=== PATIENT | female | born 1955 | race Caucasian/White ===

== ENCOUNTER 2018-03-07 16:08 | Emergency (ER) | payer BC ==
[2018-03-07 16:19] VITALS: BP 147/87
--- NOTE | 2018-03-07 17:09 | RAD ---
INDICATION: Nose and RIGHT supraorbital pain post fall 4 days ago. Bilateral black eyes. COMPARISON: March 07, 2016 CT paranasal sinuses. TECHNIQUE: Multidetector CT base of the skull through mandible without contrast. Multiplanar reformation. REPORT: Mild RIGHT greater than LEFT preseptal orbital edema. Negative for post septal orbital edema. No loculated soft tissue plane hematoma evident. Negative for subcutaneous emphysema. Transverse lucency at the tip of the RIGHT nasal bone consistent with an age indeterminant nondisplaced fracture. Overlying soft tissue swelling. The orbital and maxillary sinus margins, zygomatic arches, lamina papyracea, base of the maxilla, and pterygoid plates are intact. The mandible is intact. Normal temporal mandibular joint alignment. Senile morphology mandible. Negative for paranasal sinus fluid levels. Clear visualized mastoid air spaces. IMPRESSION: 1. Transverse lucency at the tip of the RIGHT nasal bone consistent with an age indeterminant nondisplaced fracture. Given that the fracture is new compared with the 2016 exam it may be acute. 2. Mild RIGHT greater than LEFT preseptal orbital edema and edema over the bridge of the nose. Negative for post septal orbital edema. No loculated soft tissue plane hematoma evident. Negative for subcutaneous emphysema.
--- NOTE | 2018-03-07 20:56 | UC ---
Bernard Villar Rebecca, scribed for Roman Smith MD on 03/07/18 at 1634 . Eye Complaint HPI - HPI Summary HPI Summary: Pt is a 62 y/o F who presents to [facility] c/o bilateral blurred vision s/p trauma. On Sunday (4 days ago), the pt tripped and fell, hitting her face on a wooden counter top. Negative LOC. Additionally notes mild pain, ranked 2/10 and characterized as an ache, with the primary complaint being the blurred vision. Denies PARRA. - History of Current Complaint Chief Complaint: [facility] Stated Complaint: FACIAL INJURY Time Seen by Provider: 03/07/18 16:24 Hx Obtained From: Patient Onset/Duration: Still Present Severity Currently: Mild Pain Intensity: 2 Pain Scale Used: 0-10 Numeric Character: Dull Aggravating Factor(s): Nothing Alleviating Factor(s): Nothing Associated Signs And Symptoms: Positive: Vision Impairment Bilateral - Blurred Related History: Trauma - Allergies/Home Medications Allergies/Adverse Reactions: Allergies Allergy/AdvReac Type Severity Reaction Status Date / Time celecoxib Allergy Intermediate Rash Verified 03/07/18 16:27 PMH/Surg Hx/FS Hx/Imm Hx - Additional Past Medical History Additional PMH: PMHx: HTN, anxiety NEGATIVE PMHx: COPD, CAD, Thyroid disease - Surgical History Surgical History: Yes Surgery Procedure, Year, and Place: uterine surgery for benign cyst - Family History Known Family History: Negative: Cardiac Disease, Hypertension, Diabetes - Social History Alcohol Use: None Substance Use Type: None Smoking Status (MU): Former Smoker Type: Cigarettes Amount Used/How Often: over 18 years ago Review of Systems Constitutional: Negative Skin: Negative Eyes: Blurred Vision, Other - Eye pain ENT: Negative Respiratory: Negative Cardiovascular: Negative Gastrointestinal: Negative Genitourinary: Negative Motor: Negative Neurovascular: Negative Musculoskeletal: Negative Neurological: Negative Psychological: Negative All Other Systems Reviewed And Are Negative: Yes Physical Exam - Summary Physical Exam Summary: VITAL SIGNS: Reviewed. GENERAL: ~Patient is a well developed and nourished female who is lying comfortable in the stretcher. ~Patient is not in any acute respiratory distress. HEAD AND FACE: Ecchymosis around both orbits of the eyes EYES: PERRLA, EOMI x 2. EARS: Hearing grossly intact. MOUTH: Oropharynx within normal limits. NECK: Supple, trachea is midline, no adenopathy, no JVD, no carotid bruit. CHEST: Symmetric, no tenderness at palpation LUNGS: Clear to auscultation bilaterally. No wheezing or crackles. CVS: Regular rate and rhythm, S1 and S2 present, no murmurs or gallops appreciated. EXTREMITIES: Full ROM in all major joints, no edema, no cyanosis or clubbing. NEURO: Alert and oriented x 3. No acute neurological deficits. Speech is normal and follows commands. SKIN: Dry and warm Triage Information Reviewed: Yes Vital Signs: Initial Vital Signs Temp 97.8 F 03/07/18 16:12 Pulse 65 03/07/18 16:12 Resp 16 03/07/18 16:12 BP 147/87 03/07/18 16:12 Pulse Ox 100 03/07/18 16:12 Vital Signs Reviewed: Yes Diagnostics - Radiology CT Maxillofacial Radiology Interpretation Completed By: Radiologist - 1. Transverse lucency at the tip of the RIGHT nasal bone consistent with an age indeterminant nondisplaced fracture. Given that the fracture is new compared with the 2016 exam it may be acute. 2. Mild RIGHT greater than LEFT preseptal orbital edema and edema over the bridge of the nose. Negative for post septal orbital edema. No loculated soft tissue plane hematoma evident. Negative for subcutaneous emphysema. Physician reviewed this radiology report. Eye Complaint Course/Dx - Course Course Of Treatment: Pt is a 62 y/o F who presents to [facility] c/o bilateral blurred vision s/p trauma. On Sunday (4 days ago), the pt tripped and fell, hitting her face on a wooden counter top. Negative LOC. Additionally notes mild pain, ranked 2/10 and characterized as an ache, with the primary complaint being the blurred vision. Denies PARRA. CT showed 1. Transverse lucency at the tip of the RIGHT nasal bone consistent with an age indeterminant nondisplaced fracture. Given that the fracture is new compared with the 2016 exam it may be acute. 2. Mild RIGHT greater than LEFT preseptal orbital edema and edema over the bridge of the nose. Negative for post septal orbital edema. No loculated soft tissue plane hematoma evident. Negative for subcutaneous emphysema. There are no orbital fractures. Visual acuity is not significantly decreased, she is wearing glasses, so probably normal acuity. However, she will be sent to see ophthalmology. If symptoms worsen, she should return to [facility] or ED. The patient was found to have increased BP in UC. The patient will follow up with PCP for better control of BP. I discussed all the findings and test results with the patient. Patient was instructed to return to the urgent care or go to ER immediately if any of the symptoms return or worsens. Plan of care was discussed with the patient, and patient understands and agrees. All questions were answered to patient satisfaction. There were no further complaints or concerns. - Differential Dx/Diagnosis Provider Diagnoses: Nasal fracture Discharge - Sign-Out/Discharge Documenting (check all that apply): Discharge/Admit/Transfer - Discharge - Discharge Plan Condition: Stable Disposition: HOME Patient Education Materials: Nasal Fracture (ED) Referrals: [facility] [place] PHYSICIAN REFERRAL [Outside] Zo Brown [Primary Care Provider] - Douglas Burch MD [Medical Doctor] - Additional Instructions: FOLLOW UP WITH YOUR PRIMARY CARE PROVIDER WITHIN ONE WEEK FOR HIGH BLOOD PRESSURE NOTED TODAY. RETURN TO URGENT CARE OR THE ED FOR ANY WORSENING OR NEW SYMPTOMS. The documentation as recorded by the Bernard yeung Rebecca accurately reflects the service I personally performed and the decisions made by me, Roman Smith MD.
== END 2018-03-07 17:19 | disposition home or self-care (01) ==
LOC: UCEAST 16:08
DX: S02.2XXA Fracture of nasal bones, initial encounter for closed fracture (principal); W01.198A Fall on same level from slipping, tripping and stumbling with subsequent striking against other object, initial encounter; Y93.9 Activity, unspecified; Y92.9 Unspecified place or not applicable; H53.8 Other visual disturbances; I10 Essential (primary) hypertension; F41.9 Anxiety disorder, unspecified; Z88.8 Allergy status to other drugs, medicaments and biological substances; Z87.891 Personal history of nicotine dependence
CPT/HCPCS: 70486; 99211; G0463

== ENCOUNTER 2018-05-30 16:03 | Emergency (ER) | payer BC ==
[2018-05-30 16:13] VITALS: BP 153/100
--- NOTE | 2018-05-30 16:24 | UC ---
Headache HPI - HPI Summary HPI Summary: This is anjana Russ documenting for attending Roman Pacheco MD. Pt is a 62 y/o F, with a Hx of stroke, c/o speech impairment and PARRA onset 5 days ago. PARRA is located in the occipital region and described as pounding. Assoc. Sx: Crying, upset, PARRA. Denies: changes in gait, vision, weakness, numbness, Nausea. She reports that "When I go to say something it comes out completely different". She has a Hx of HAs which feel different and are located in a different area than the PARRA she has been experiencing recently. PMHx : HTN, Anxiety. FHx: CA, CAD. PSHx: Reviewed and N/C. - History Of Current Complaint Chief Complaint: UCGeneralIllness Stated Complaint: SPEECH COMPLAINT HEADACHE Time Seen by Provider: 05/30/18 16:08 Hx Obtained From: Patient Onset/Duration: Sudden Onset - Speech impairment, Gradual Onset - PARRA, Lasting Days - 5 days, Still Present Pain Intensity: 0 Pain Scale Used: 0-10 Numeric Timing: Intermittent, Lasting: Character: Throbbing - "Pounding" Location of Headache: Occipital Aggravating Factor(s): Nothing Allevating Factor(s): Nothing Associated Signs And Symptoms: Positive: Other (Noted In Comments) - POS: speech impairment, PARRA, crying, upset. Negative: Nausea, Visual Changes - Allergies/Home Medications Allergies/Adverse Reactions: Allergies Allergy/AdvReac Type Severity Reaction Status Date / Time celecoxib Allergy Intermediate Rash Verified 05/30/18 16:11 Home Medications: Home Medications Citalopram Hydrobromide [Citalopram HBr] 5 mg PO DAILY 05/30/18 [History Confirmed 05/30/18] PMH/Surg Hx/FS Hx/Imm Hx - Surgical History Surgical History: Yes Surgery Procedure, Year, and Place: uterine surgery for benign cyst - Family History Known Family History: Negative: Cardiac Disease, Hypertension, Diabetes - Social History Occupation: Employed Full-time Lives: With Family Alcohol Use: None Substance Use Type: None Smoking Status (MU): Former Smoker Type: Cigarettes Amount Used/How Often: over 18 years ago Review of Systems Constitutional: Other - POS: crying, upset Eyes: Other - NEG: changes in vision Motor: Other - NEG: Changes in gait Neurological: Headache - "Pounding" located in Occipital region, Other - NEG: Nausea, numbness, weakness All Other Systems Reviewed And Are Negative: Yes Physical Exam Triage Information Reviewed: Yes Appearance: Well-Appearing, No Pain Distress Vital Signs: Initial Vital Signs Temp 98.4 F 05/30/18 16:07 Pulse 89 05/30/18 16:07 Resp 18 05/30/18 16:07 BP 153/100 05/30/18 16:07 Pulse Ox 99 05/30/18 16:07 Vital Signs Reviewed: Yes Eyes: Positive: Conjunctiva Clear ENT Exam: Normal ENT: Positive: Normal ENT inspection Neck: Positive: Supple, Nontender Respiratory: Positive: Lungs clear, Normal breath sounds, No respiratory distress Cardiovascular: Positive: RRR, No Murmur Abdomen Description: Positive: Nontender Musculoskeletal: Positive: ROM Intact Neurological: Positive: Alert, Muscle Tone Normal, Other: - CN 2-12 intact grossly. Her strength and motor exam are non focal. Gait is normal. And she speaks full sentences and verbalizes understanding of things without any evidence of expressive or receptive aphasia at this point in time. Psychological: Positive: Other: - she is tearful at times Skin Exam: Normal Headache Course/Dx - Course Course Of Treatment: 62 yr old with headache and what she describes as expressive aphasia at times over the past 5 days. She signed out AMA with refusal of ambulance transport. 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 intermittent expressive aphasia. hypertension Discharge - Sign-Out/Discharge Documenting (check all that apply): Patient Departure - Discharge Plan Condition: Good Disposition: AGAINST MEDICAL ADVICE Referrals: Zo Brown [Primary Care Provider] - - Billing Disposition and Condition Condition: GOOD Disposition: Against Medical Advice
== END 2018-05-30 16:23 | disposition left against medical advice (07) ==
LOC: UCEAST 16:03
DX: R51 Headache (principal); R47.01 Aphasia; I10 Essential (primary) hypertension; Z88.8 Allergy status to other drugs, medicaments and biological substances; Z87.891 Personal history of nicotine dependence
CPT/HCPCS: 99212; G0463

== ENCOUNTER 2018-05-30 17:18 | Observation (INO) | payer BC ==
--- NOTE | 2018-05-30 19:08 | ED ---
Neurological HPI - HPI Summary HPI Summary: This is anjana Vincent documenting for attending Asher Joy MD. This patient is a 62 year old F presenting to [facility] with a chief complaint of slurred speech since 05/22/2018. The episodes of slurred speech have worsened and become more frequent. An episode occurred again today at 14:00, lasting for about 30 seconds. The patient also reports a feeling tired. The patient denies any issues with her arms or legs. Today was the first time she has seen a doctor for this. She has a PMHx of sinus PARRA. She has not had any medication changes recently. She receives medication for high BP. The patient does not smoke. She has not been sick recently and has been sleeping well. However, she has been under lots of stress recently. - History of Current Complaint Chief Complaint: EDNeurologicalDeficit Stated Complaint: CC SENT POS STROKE Time Seen by Provider: 05/30/18 18:17 Hx Obtained From: Patient Onset/Duration: Started days ago - 05/22/2018 Timing: Intermittent Episodes Lasting: - about 30 seconds Pain Intensity: 0 Associated Signs and Symptoms: Positive: Headache, Impaired Speech - Allergy/Home Medications Allergies/Adverse Reactions: Allergies Allergy/AdvReac Type Severity Reaction Status Date / Time celecoxib Allergy Intermediate Rash Verified 05/30/18 16:11 Home Medications: Home Medications Citalopram TAB* [CeleXA TAB*] 20 mg PO DAILY 05/30/18 [History Confirmed ] Losartan/Hydrochlorothiazide [Losartan Potassium/Hydroc 50-12.5 mg] 1 tab PO DAILY 05/30/18 [History Confirmed 05/30/18] PMH/Surg Hx/FS Hx/Imm Hx Endocrine/Hematology History: Denies: Hx Diabetes, Hx Thyroid Disease Cardiovascular History: Reports: Hx Hypertension - on medication Denies: Hx Pacemaker/ICD Respiratory History: Denies: Hx Asthma, Hx Chronic Obstructive Pulmonary Disease (COPD) GI History: Denies: Hx Ulcer Sensory History: Denies: Hx Hearing Aid Psychiatric History: Reports: Hx Anxiety Denies: Hx Panic Disorder - Surgical History Surgery Procedure, Year, and Place: uterine surgery for benign cyst Infectious Disease History: No Infectious Disease History: Reports: Hx Tuberculosis Denies: Hx Hepatitis, Hx Human Immunodeficiency Virus (HIV), History Other Infectious Disease, Traveled Outside the [place] in Last 30 Days - Family History Known Family History: Negative: Cardiac Disease, Hypertension, Diabetes - Social History Occupation: Unemployed Lives: With Family - Alcohol Use: None Substance Use Type: Reports: None Smoking Status (MU): Former Smoker Type: Cigarettes Amount Used/How Often: over 18 years ago Review of Systems Positive: Fatigue. Negative: Fever, Chills Negative: Erythema Negative: Sore Throat Negative: Chest Pain Negative: Shortness Of Breath, Cough Negative: Abdominal Pain, Vomiting, Nausea Negative: dysuria, hematuria Negative: Myalgia, Edema Negative: Rash Neurological: Other - Denies dizziness Positive: Headache, Slurred Speech - intermittent episodes lasting approximately 30 seconds All Other Systems Reviewed And Are Negative: Yes Physical Exam - Summary Physical Exam Summary: Constitutional: Well-developed, Well-nourished, Alert. (-) Distressed Skin: Warm, Dry HENT: Normocephalic; Atraumatic Eyes: Conjunctiva normal Neck: Musculoskeletal ROM normal neck. (-) JVD, (-) Stridor, (-) Tracheal deviation Cardio: Rhythm regular, rate normal, Heart sounds normal; Intact distal pulses; The pedal pulses are 2+ and symmetric. Radial pulses are 2+ and symmetric. (-) Murmur Pulmonary/Chest wall: Effort normal. (-) Respiratory distress, (-) Wheezes, (-) Rales Abd: Soft. (-) Tenderness, (-) Distension, (-) Guarding, (-) Rebound Musculoskeletal: (-) Edema Lymph: (-) Cervical adenopathy Neuro: Alert, Oriented x3, Strength normal, Cranial nerves II-XII are grossly intact. (-) Dysmetria, (-) Nystagmus, (-) Ataxia by finger to nose testing, (-) Sensory deficit. Psych: Mood and affect Normal Triage Information Reviewed: Yes Vital Signs On Initial Exam: Initial Vitals Temp Pulse Resp BP Pulse Ox 97.1 F 88 16 155/77 98 05/30/18 17:46 05/30/18 17:46 05/30/18 17:46 05/30/18 17:46 05/30/18 17:46 Vital Signs Reviewed: Yes Diagnostics - Vital Signs Vital Signs Temp Pulse Resp BP Pulse Ox 05/30/18 18:00 76 18 99 05/30/18 17:59 75 19 100 05/30/18 17:57 78 175/105 98 05/30/18 17:46 97.1 F 88 16 155/77 98 - Laboratory Result Diagrams: 05/30/18 19:41 05/30/18 19:41 Lab Statement: Any lab studies that have been ordered have been reviewed, and results considered in the medical decision making process. - CT Brain CT CT Interpretation Completed By: Radiologist - No accute intracranial abnormality. Physician has reviewed this report. - EKG No standard instances Cardiac Rate: NL - 79 BPM EKG Rhythm: Sinus Rhythm EKG Interpretation: no STEMI Re-Evaluation - Re-Evaluation 1 Re-Evaluation Time: 19:30 Change: Improved Comment: No longer slurring. Clear speech. 2 Re-Evaluation Time: 20:51 Change: Improved Comment: Conducted a full neurological exam. Results were normal. Course/Dx - Course Assessment/Plan: ED Physician reviewed outside records. ED Physician is considering large vessel stenosis and stuttering TIA. - Diagnoses Provider Diagnoses: TIA (transient ischemic attack) - Physician Notifications Discussed Care Of Patient With: Rashad Wright - Neurology Time Discussed With Above Provider: 21:35 Instructed by Provider To: Admit As Inpatient - Recommended observation. He also recommended Aspirin and Plavix to be administered. Discharge - Sign-Out/Discharge Documenting (check all that apply): Patient Departure - Discharge Plan Condition: Stable Disposition: [facility]MITT[facility] Referrals: Zo Brown [Primary Care Provider] - - Billing Disposition and Condition Condition: STABLE Disposition: Admitted to [facility]
[2018-05-30 19:47] LABS: Hematocrit 42 % (35-47); Hemoglobin 14.3 g/dl (12.0-16.0); Mean Corpuscular HGB Conc 34 g/dl (31-36); Mean Corpuscular Hemoglobin 30 pg (27-31); Mean Corpuscular Volume 87 fL (80-97); Platelet Count 200 10^3/ul (150-450); Red Blood Count 4.79 10^6/ul (4.00-5.40); Red Cell Distribution Width 14 % (10.5-15); White Blood Count 7.7 10^3/ul (3.5-10.8)
[2018-05-30 19:56] LABS: INR 0.92 (0.77-1.02)
[2018-05-30 20:04] LABS: EGFR Non-African American 58.4 (>60)
[2018-05-30] MEDS ORDERED: Iodixanol* (CONTRAST) 320 MG/ML 100 ML SDV IV ONE (20:52)
[2018-05-30] MEDS ORDERED: Clopidogrel TAB* 300 MG PO ONE (21:39)
[2018-05-30] MEDS ORDERED: Aspirin TAB* 325 MG PO ONE (21:39)
[2018-05-30] MEDS ORDERED: Acetaminophen TAB* 325 MG PO PRN (23:20)
[2018-05-30] MEDS ORDERED: PROCHLORPERAZINE INJ 5 MG/ML 2 ML VIAL IV PRN (23:20)
--- NOTE | 2018-05-31 01:38 | HP ---
CC: CHIP Franco; Dr. Wright HISTORY AND PHYSICAL: DATE OF ADMISSION: 05/30/18 TIME OF EVALUATION: 10:40 p.m. PRIMARY CARE PROVIDER: CHIP Franco CONSULTING NEUROLOGIST: Dr. Wright. CHIEF COMPLAINT: "I have slurred vision." HISTORY OF PRESENT ILLNESS: Mrs. Davenport is a 62-year-old lady with past medical history of hypertension, anxiety who presented to the emergency room with complaint of slurred speech. It is of note that the patient also seems to have difficulty finding words as she initially told me that she had "slurred vision, " that she had the heart cath for "heart pulpitations," but she was able to notice the error and fix it. The patient states that a week ago she started to have difficulty articulating words and also finding the right words to say. She states that "it feels like my brain cannot communicate with my mouth." She denies any visual changes, any localized weakness or changing sensation. No visual changes. She states that since Sunday, she has had at least 10 episodes of this difficulty with speech and they have become more frequent reason why she came to the emergency room for further evaluation. She states that after arriving to the emergency room, she also developed a mild posterior headache associated with nausea and 1 episode of vomiting. There are no complaints of chest pain, palpitation, shortness of breath, diarrhea, or urinary complaints. The patient states that 6 years ago, she had palpitations, had Holter and was referred to cardiac cath done at [facility] that she reports was normal. PAST MEDICAL HISTORY: 1. Hypertension. 2. Anxiety. MEDICATION LIST: 1. Losartan/hydrochlorothiazide 50/12.5 mg 1 tablet p.o. daily. 2. Citalopram 10 mg p.o. daily. ALLERGIES: With CELECOXIB, the patient had a rash. FAMILY HISTORY: Father had a history of blood clot. Mother had uterine cancer and grandmother had a history of leukemia. There is no history of stroke or heart disease. SOCIAL HISTORY: The patient smoked from age 18 until 40 a pack and half a day. No history of alcohol or drug use. Surrogate decision maker is her , Bradford Davenport, phone number is [phone]. The patient is a homemaker. REVIEW OF SYSTEMS: A 14-point review of systems was performed and all the pertinent negative and positive findings are in the HPI. PHYSICAL EXAMINATION GENERAL: The patient is a pleasant lady, lying in ED stretcher, in no acute distress. VITAL SIGNS: Temperature 98.1, heart rate is 80, respiratory rate is 16, oxygen saturation is 100% on room air, blood pressure is 149/85. HEENT: Pupils are equal. Reactive to light. Moist mucous membranes. CHEST: Breath sounds present bilaterally with no added sounds. CVS: Normal S1, S2. Regular rate and rhythm. ABDOMEN: Soft. Bowel sounds are present. EXTREMITIES: No edema. NEUROLOGIC: She is alert and oriented x3. Able to move all 4 extremities. Power is 5/5. No changes in sensation. Speech is normal, just those 2 episodes of using the wrong words (slurred vision and palpitations). LABORATORY AND IMAGING DATA: The patient had a CBC that was normal. INR was 0.92, aPTT 30. Chemistry was normal except for creatinine of 0.97. Glucose of 119, but no fasting. Troponin was 0.02. EKG done at 1942 on 05/30/18 showed sinus rhythm at 79 beats per minute with borderline ST depressions on the anterolateral leads and a CT of the brain without contrast was read showing no acute intracranial abnormality and a CTA of the head that was read as a normal head CTA. Also, a normal CTA of the neck. ASSESSMENT AND PLAN: Mrs. Davenport is a 62-year-old lady with a past medical history of hypertension, anxiety, remote history of tobacco abuse who presented to the emergency room with episodes of slurred speech for a week who is going to be admitted to rule out the possibility of stuttering transient ischemic attack versus cerebrovascular accident. 1. Stuttering transient ischemic attack versus cerebrovascular accident. The patient will be admitted as observation to the telemetry floor. She will have an MRI of the brain done, an echocardiogram with bubble study and we are going to check A1c and lipid profile. For now, she will be continued on aspirin and Plavix and a neurology consultation was requested by the ED provider. The patient will be monitored on telemetry with neurological checks. 2. Hypertension. We will continue losartan/hydrochlorothiazide with holding parameters. 3. Anxiety. We will continue Celexa. 4. DVT prophylaxis. The patient has a score of 2 on the DVT Prophylaxis Assessment Guide and she will have SCDs. 5. Code status is full. TIME SPENT: Approximately 45 minutes were spent with the patient interview, medical records review, physical examination to complete this admission, more than half of this time was spent [id number] with the patient in coordination of care. [id number]/CPS #: [id number] BLACK
--- NOTE | 2018-05-31 07:17 | RAD ---
INDICATION: Stuttering aphasia. COMPARISON: Comparison is made with a prior MRI of the brain from October 20, 2013. TECHNIQUE: Contiguous axial sections of the brain were obtained from the skull base to the vertex without contrast. FINDINGS: The ventricles, cisterns and sulci are within normal limits. No significant focal abnormality or mass effect is seen. There is no evidence for hemorrhage. No significant focal osseous abnormality is seen. The visualized portion of the paranasal sinuses and mastoid air cells appear clear. IMPRESSION: NO EVIDENCE FOR GROSS ACUTE INFARCT, MASS EFFECT OR HEMORRHAGE.
--- NOTE | 2018-05-31 07:28 | RAD ---
Indication: Transient ischemic attack, aphasia. Contrast: Administered 80.1 ml of VISAPAQUE 320 mg/ml CTA of the neck and head was performed without IV contrast administration. Coronal and sagittal reconstructed images were obtained. The origins of the great vessels are unremarkable. The common carotid arteries are patent with no evidence of intimal wall thickening or plaque. The internal carotid arteries demonstrate no cyst significant stenosis at its origin. The internal carotid arteries on the neck demonstrates no evidence of tapering to suggest dissection. The intracranial carotid arteries are grossly unremarkable. The vertebral arteries demonstrate a dominant right vertebral artery. No evidence of vertebral artery dissection is noted. The caliber of the left vertebral artery is consistent throughout the neck. The intracranial circulation demonstrates anterior and middle cerebral arteries to be unremarkable. No evidence of branch occlusion is noted. No aneurysmal dilatation is noted. The basilar artery and posterior cerebral artery are patent. There is a patent right posterior communicating artery noted. No aneurysmal dilatation or branch occlusion is noted. Soft tissues of the neck demonstrates normal parotid glands. No abnormal adenopathy is noted. No other masses are noted in the neck. The thyroid gland demonstrates several low density lesions. These are subcentimeter in size. Lung apices are grossly unremarkable. IMPRESSION: Unremarkable CTA of the neck and head with no evidence of carotid or vertebral artery dissection. Intracranial circulation demonstrates no evidence of branch occlusion or aneurysmal dilatation.
[2018-05-31] MEDS: Losartan TAB* 25 MG PO SCH (08:59)
[2018-05-31] MEDS: Hydrochlorothiazide TAB* 25 MG PO SCH (08:59)
[2018-05-31] MEDS: Citalopram TAB* 20 MG PO SCH (08:59)
[2018-05-31] MEDS ORDERED: Clopidogrel TAB* 75 MG PO SCH (09:00)
[2018-05-31] MEDS: Aspirin EC TAB* 81 MG TAB.EC PO SCH (09:00)
--- NOTE | 2018-05-31 10:58 | ECHO ---
Patient: MICHEL VEGA [facility] Rec#: [id number] : 1955 Date: 05/31/2018 Age: 62y Height: 172.72 cm / 68.0 in Weight: 79.38 kg / 175.0 lbs Sex: F BSA: 1.93 Room#: [facility] Admit Date#: 05/30/2018 Referring: Karey Hurst MD Reading: Ángel Park MD Remediation Technician: Rita Velasco RDCS CC: Zo Brown NP Transthoracic Echocardiogram Indication: TIA BP: 140/76 HR: 65 Rhythm: NSR Findings History: HTN, former smoker. Technical Comments: The study quality is fair. Completed at 1030. Left Ventricle: The left ventricular chamber size is normal. There is no left ventricular hypertrophy. Global left ventricular wall motion and contractility are within normal limits. There is normal left ventricular systolic function. The estimated ejection fraction is 60-65%. Abnormal left ventricular diastolic function is observed. There is an E to A reversal in the mitral valve flow pattern suggestive of diastolic dysfunction. Left Atrium: The left atrial chamber size is normal. Right Ventricle: The right ventricular cavity size is normal. The right ventricular global systolic function is normal. Right Atrium: The right atrial cavity size is normal. Interatrial septum appears intact without evidence of shunting. The bubble study is negative. A patent foramen ovale is not demonstrated with color Doppler and agitated contrast. Aortic Valve: The aortic valve is trileaflet. There is no evidence of aortic valve thickening. There is trace to mild aortic regurgitation. There is no evidence of aortic stenosis. Mitral Valve: The mitral valve leaflets are mildly thickened. There is prolapse of the posterior leaflet of the mitral valve. There is moderate to severe mitral regurgitation. There is no evidence of mitral stenosis. Tricuspid Valve: The tricuspid valve leaflets are normal. There is trace tricuspid regurgitation. Unable to estimate the right ventricular systolic pressure. There is no tricuspid stenosis. Pulmonic Valve: The pulmonic valve structure is not well visualized. There is no pulmonic stenosis. Pericardium: There is no significant pericardial effusion. A pericardial fat pad is visualized. Aorta: There is no dilatation of the ascending aorta. There is no dilatation of the aortic arch. There is no dilation of the aortic root. Pulmonary Artery: The main pulmonary artery is not well visualized. Venous: The inferior vena cava appears normal in size. There is a greater than 50% respiratory change in the inferior vena cava dimension. Contrast: Normal saline was used as contrast for the bubble study. Images 26 and 27. Intravenous contrast was used to help determine presence of intracardiac shunting. Summary: There was not any prior study for comparison. Conclusions The left ventricular chamber size is normal. The estimated ejection fraction is 60-65%. Abnormal left ventricular diastolic function is observed. There is an E to A reversal in the mitral valve flow pattern suggestive of diastolic dysfunction. The bubble study is negative. A patent foramen ovale is not demonstrated with color Doppler and agitated contrast. There is trace to mild aortic regurgitation. There is prolapse of the posterior leaflet of the mitral valve. There is moderate to severe mitral regurgitation. There is trace tricuspid regurgitation. Measurements Name Value Normal Range RVIDd (AP) 2D 2.9 cm (0.9 - 2.6) RVDdMajor (2D) 4 cm (2.2 - 4.4) RAd ISD 4CH 4.3 cm (3.4 - 4.9) RA (A4C)W 4.1 cm (2.9 - 4.6) IVSd (2D) 0.7 cm (0.6 - 1) LVPWd (2D) 0.7 cm (0.6 - 1) LVIDd (2D) 4.6 cm (3.6 - 5.4) LVIDs (2D) 2.3 cm - LV FS (2D) 51 % (25 - 45) EF Teichholz (2D) 82 % - Aortic Annulus 1.8 cm (1.4 - 2.6) Ao root diameter (2D) 3 cm (2.1 - 3.5) Ascending Ao 3.2 cm (2.1 - 3.4) Aortic arch 3 cm (1.8 - 3.4) LA dimension (AP) 2D 3.5 cm (2.3 - 3.8) LAd ISD 4CH 4.2 cm (2.9 - 5.3) LA ISD 4CH W 4.3 cm (2.5 - 4.5) Name Value Normal Range LA ESV SP 4CH (A/L) 48 ml - LA ESV SP 2CH (A/L) 27 ml - LA ESV BP (A/L) 37 ml - LA ESV BP (A/L) index 19 ml/m2 - LA ESV SP 4CH (MOD) 46 ml - LA ESV SP 2CH (MOD) 25 ml - Name Value Normal Range MV E-wave Vmax 0.87 m/sec - MV deceleration time 175 msec - MV A-wave Vmax 1 m/sec - MV E:A ratio 0.87 ratio - LV septal e' Vmax 0.06 m/sec - LV lateral e' Vmax 0.09 m/sec - LV E:e' septal ratio 14.5 ratio - LV E:e' lateral ratio 9.67 ratio - Name Value Normal Range AV Vmax 1.33 m/sec - AV VTI 29.39 cm - AV peak gradient 7.05 mmHg - AV mean gradient 3.03 mmHg - LVOT Vmax 1.04 m/sec - LVOT VTI 22.88 cm - LVOT peak gradient 4.36 mmHg - LVOT mean gradient 2.08 mmHg - ALEXANDER Vmax 0.6 m/sec - Name Value Normal Range MR Vmax 5.67 m/sec - MR VTI 185 cm - MR volume (PISA) 15.8 ml - MR flow (PISA) 53.6 ml/sec - MR ERO 0.09 cm2 - MR PISA radius 0.4 cm - MR alias Vmax 42 cm/sec - Name Value Normal Range IVC diameter 1.4 cm - Name Value Normal Range PV Vmax 1.08 m/sec - PV peak gradient 4.72 mmHg -
[2018-05-31] MEDS: LORazepam TAB(*) 1 MG PO PRN ×2 (11:05→17:07)
--- NOTE | 2018-05-31 12:20 | PN ---
Subjective Date of Service: 05/31/18 Interval History: No more visual sx's. No headache, other neuro sx's. She states she never had this before. No new c/o. Objective Active Medications: Acetaminophen (Tylenol Tab*) 650 mg PO Q6H PRN PRN Reason: pain/fever Aspirin (Aspirin Ec Tab*) 81 mg PO DAILY [facility] Last Admin: 05/31/18 09:00 Dose: 81 mg Citalopram Hydrobromide (Celexa Tab*) 20 mg PO DAILY [facility] Last Admin: 05/31/18 08:59 Dose: 20 mg Clopidogrel Bisulfate (Plavix Tab*) 75 mg PO DAILY [facility] Last Admin: 05/31/18 09:00 Dose: 75 mg Hydrochlorothiazide (Hydrodiuril Tab*) 12.5 mg PO DAILY [facility] Last Admin: 05/31/18 08:59 Dose: 12.5 mg Lorazepam (Ativan Tab(*)) 1 mg PO Q4H PRN PRN Reason: ANXIETY Last Admin: 05/31/18 11:05 Dose: 1 mg Losartan Potassium (Cozaar Tab*) 50 mg PO DAILY [facility] Last Admin: 05/31/18 08:59 Dose: 50 mg Prochlorperazine Edisylate (Compazine Inj*) 5 mg IV Q6H PRN PRN Reason: NAUSEA/VOMITING Vital Signs - 8 hr 05/31/18 05/31/18 05/31/18 07:47 11:05 11:21 Temperature 97.8 F 98.0 F Pulse Rate 66 80 Respiratory 20 16 20 Rate Blood Pressure 138/79 125/104 (mmHg) O2 Sat by Pulse 99 100 Oximetry 05/31/18 11:36 Temperature Pulse Rate 76 Respiratory Rate Blood Pressure 138/87 (mmHg) O2 Sat by Pulse Oximetry Oxygen Devices in Use Now: None Appearance: Alert, on her R side in bed. Sl sleepy from lorazepam but answers quickly and appropriately. In good spirits. Looks comfortable. Eyes: No Scleral Icterus Extremities: No Edema, No Clubbing, Cyanosis, - Skin: No Rash or Ulcers, No Nodules or Sclerosis, - Neurological: Alert and Oriented x 3, NL Sensation, - - Sl sleepy from lorazepam but answers quickly and appropriately. Speech clear and fluent. No tremor. Result Diagrams: 05/30/18 19:41 05/30/18 19:41 Assess/Plan/Problems-Billing Assessment: - Patient Problems (1) Blurry vision Current Visit: Yes Status: Acute Code(s): H53.8 - OTHER VISUAL DISTURBANCES SNOMED Code(s): 212335127 Comment: CT brain, CTA head and neck neg. Echo showed diastolic dysfunction , nl LVEF, no PFO. MRI pending. (2) HTN (hypertension) Current Visit: Yes Status: Acute Code(s): I10 - ESSENTIAL (PRIMARY) HYPERTENSION SNOMED Code(s): 90760528 Comment: Continue losartan + thiazide. (3) Anxiety Current Visit: Yes Status: Acute Code(s): F41.9 - ANXIETY DISORDER, UNSPECIFIED SNOMED Code(s): 23858370 Comment: Continue citalopram. PRN lorazepam for MRI, pt states she is claustrophobic.
--- NOTE | 2018-05-31 20:22 | RAD ---
HISTORY: Slurred speech COMPARISONS: CT brain May 30, 2018 as well as CTA head and neck from the same date TECHNIQUE: The following sequences were obtained of the head: Sagittal T1-weighted images, axial T2-weighted images, axial FLAIR images, axial susceptibility weighted images, axial T1-weighted images. Additionally, axial diffusion-weighted images were obtained with calculated apparent diffusion coefficients.. FINDINGS: HEMORRHAGE/INFARCT: There is no hemorrhage or acute infarct. MASSES/SHIFT: There is no mass or shift. EXTRA-AXIAL SPACES/MENINGES: There are no extra-axial fluid collections. SULCI AND VENTRICLES: The sulci and ventricles are normal in size and position for the patient's stated age. CEREBRUM: There are no focal parenchymal abnormalities. BRAINSTEM: There are no focal parenchymal abnormalities. CEREBELLUM: There are no focal parenchymal abnormalities. The cerebellar tonsils are normal in size and position. SELLA: The sella is normal. PINEAL: The pineal region is clear. CP ANGLE/TEMPORAL BONES: The labyrinthine structures are grossly normal. VESSELS: Normal flow-voids are noted within the visualized vertebral vasculature. DIFFUSION ABNORMALITIES: There are no diffusion abnormalities. PARANASAL SINUSES/MASTOIDS: The paranasal sinuses are clear. ORBITS: The orbits are unremarkable. BONES AND SOFT TISSUE: No bone or soft tissue abnormalities are noted. IMPRESSION: NORMAL MRI OF THE BRAIN.
--- NOTE | 2018-05-31 20:56 | CONS ---
CC: Zo Brown NP NEUROLOGY CONSULT REPORT: DATE OF CONSULT: 05/31/18 PRIMARY CARE PROVIDER: Zo Brown NP REQUESTING PHYSICIAN: Dr. Hurst. REASON FOR CONSULT: Difficulty with speech. HISTORY OF PRESENT ILLNESS: The patient is a 62-year-old female, who reports history of difficulty with finding words since about 1 week ago. She feels that problem has been gradually getting worse. She sometimes feels that she can think of the name of an object, but she is not able to say that correctly or find the exact word. There is no report of any other neurological symptoms such as numbness or weakness in the face, arms and legs, or dysphagia. She does not feel her speech is slurred. When asked about significant events or changes in her life recently, she reported that she had some deaths in the family recently which has been very stressful for her. PAST MEDICAL HISTORY: 1. Hypertension. 2. Anxiety. PAST SURGICAL HISTORY: None. ALLERGIES: To CELECOXIB, develops rash. FAMILY HISTORY: There is a history of uterine cancer in mother and her grandmother, had also history of leukemia. Father has a history of blood clots. SOCIAL HISTORY: The patient quit smoking more than 20 years ago. REVIEW OF SYSTEMS: Complete review of systems was reviewed and other than what mentioned in HPI is negative. PHYSICAL EXAM: Temperature 98, respiratory rate 20, pulse rate 80, blood pressure 125/104, O2 sat 100% on room air. The patient is awake, alert, and oriented to time, place, and person. Speech is fluent and naming is intact, although very rarely she has a brief pause or hesitation in the middle of reading a sentence. Repetition is intact. Visual hernandez are intact by confrontation. Pupils are symmetric and reactive to light. Extraocular movements are intact. Face is symmetric. V1 to V3 is intact to light touch and pinprick. Tongue is in midline. Palate elevates upward. Strength is 5/5 throughout. There is no pronator drift. Sensation is intact to light touch and pinprick in the upper and lower extremities. There is slight decreased vibration in the distal lower extremities bilaterally. Heel-to- leo is intact bilaterally. Deep tendon reflexes are 1+ bilaterally and symmetric. Gait is narrow based and steady. Heart has regular rate and rhythm. Lungs clear to auscultation. Abdomen is soft and non-tender. LABORATORY DATA: WBC 7.7, hemoglobin 14.3, hematocrit 42. Sodium 141, potassium 3.9, BUN 17, creatinine 0.97, glucose 119. ALT 11, AST 14, alkaline phosphatase 65. ASSESSMENT AND PLAN: The patient is a 62-year-old female with a 1-week history of word finding difficulty. Neurological exam is unremarkable, other than sometimes a brief hesitation when reading a sentence. Her speech is otherwise fluent and naming is intact. If there is suspicion for a vascular event, then this might be a very small strok in the Broca's area without causing any other neurological abnormality, so the suspicion is low. MRI brain pending. Other differentials include short seizures in the left language cortex that can sometimes cause impairment of speech. At this time, we would like to review her MRI to rule out a small stroke, as mentioned and to obtain an EEG. Neurology will follow up. [id number]/[facility] #: [id number] BLACK
--- NOTE | 2018-06-01 03:46 | EEG ---
CC: Zo Brown NP ELECTROENCEPHALOGRAPHY: DATE OF STUDY: 05/31/18 REQUESTING PHYSICIAN: Dr. Huff. CLINICAL PROBLEM: The patient is a 62-year-old right-handed female with 1-week history of word finding problems. An EEG was requested to rule out epileptiform discharges or seizures in the left hemisphere. REPORT: This digital EEG was recorded using 21 scalp and ear, and 2 EKG electrodes. It was reviewed in referential and bipolar montages following reformatting in the 10-20 international electrode placement system. In the most awake state, the background consists of 20-30 microvolts, 9-10 Hz posterior dominant rhythm with adequate reactivity to eye opening. Faster frequencies including 5-10 microvolts, 16-26 Hz discharges were seen in the anterior leads. CLINICAL IMPRESSION: This digital EEG in the awake state is within the range of normal variation. [id number]/[facility] #: [id number] MTDD
[2018-06-01 08:01] VITALS: BP 124/75
[2018-06-01] MEDS: Aspirin EC TAB* 81 MG TAB.EC PO SCH (08:30)
[2018-06-01] MEDS: Citalopram TAB* 20 MG PO SCH (08:30)
[2018-06-01] MEDS: Losartan TAB* 25 MG PO SCH (08:30)
[2018-06-01] MEDS: Hydrochlorothiazide TAB* 25 MG PO SCH (08:31)
--- NOTE | 2018-06-01 14:12 | DS ---
CC: Zo Brown NP DISCHARGE SUMMARY: DATE OF ADMISSION: DATE OF DISCHARGE: 06/01/18 HOSPITAL COURSE: This 62-year-old woman presented with 1-week history of difficulty with speech. Sh e described as being able to think of the word for an object or idea, but when she said the word, it did not come out correctly. She was aware of this at that time. The last 24 hours in the hospital, she had no events like this. She has been under a lot of personal stress at home with a in the family. The patient was seen in consultation by the neurology service. She was evaluated with the CT scan of the brain, a CTA of the head, a brain MRI, an echocardiogram, and an electroencephalogram, all of th e tests were normal except for some evidence of diastolic dysfunction on the echocardiogram as well a s moderate mitral regurgitation. In view of her multiple risk factors for cardiovascular disease, it was felt the best course would be to have her stay on aspirin 81 mg daily. She did get clopidogrel while in the hospital. FINAL DIAGNOSES: 1. Speech difficulty. 2. Hypertension. 3. Anxiety. DISCHARGE MEDICATIONS: 1. Aspirin 81 mg daily. 2. Losartan/hydrochlorothiazide 50/12.5 one daily. 3. Citalopram 20 mg daily. [id number]/[facility] #: [id number]
== END 2018-06-01 09:35 | disposition home or self-care (01) ==
LOC: ED 17:18 → MEDTELE 23:12
PROVIDERS: ADMIT Internal Medicine; ATTEND Internal Medicine
DX: R47.9 Unspecified speech disturbances (principal); I10 Essential (primary) hypertension; F41.9 Anxiety disorder, unspecified; Z79.82 Long term (current) use of aspirin; R51 Headache; Z87.891 Personal history of nicotine dependence; R53.83 Other fatigue
CPT/HCPCS: 36415; 70450; 70496; 70498; 70551; 80053; 80061; 83036; 84484; 85027; 85610; 85730; 93005; 93306; 95819; 99284; A9270-GY; G0378; Q9967